=== PATIENT | male | born 1960 | race Caucasian/White ===

== ENCOUNTER → 2018-04-13 | Outpatient (CLI) | payer BC, OTHER | LOC: CAT 07:14 | PROVIDERS: Internal Medicine | DX: I71.2 Thoracic aortic aneurysm, without rupture (principal) ==

== ENCOUNTER → 2019-04-12 | Outpatient (CLI) | payer BC, OTHER | LOC: CAT 07:49 | PROVIDERS: Internal Medicine | DX: I71.2 Thoracic aortic aneurysm, without rupture (principal) ==

== ENCOUNTER → 2020-04-06 | Outpatient (CLI) | payer BC, OTHER | LOC: CAT 07:25 | PROVIDERS: ATTEND Internal Medicine | DX: I71.2 Thoracic aortic aneurysm, without rupture (principal) ==